=== PATIENT | male | born 1950 | race Caucasian/White ===

== ENCOUNTER 2018-03-23 09:12 | Outpatient (CLI) ==
--- NOTE | 2018-03-23 10:06 | US ---
EXAM: Right upper quadrant abdominal ultrasound. History: Elevated liver enzymes. Technique: Multiple sonographic images through the abdomen were obtained. Color duplex Doppler was used to interrogate vascular flow. Findings: The visualized pancreas demonstrates no gross abnormality. No abdominal ascites. The liver is echog enic. No focal liver lesions. There is antegrade flow within the main portal vein. Limited visuali zation of the right kidney demonstrates no evidence for hydronephrosis. No shadowing gallstones. No gallbladder wall thickening. Common bile duct measures 0.3 cm in caliber. Impression: Hepatic steatosis. Examination is otherwise unremarkable.
== END 2018-03-23 09:13 | disposition home or self-care (01) ==
LOC: RAD 09:12
PROVIDERS: ATTEND Internal Medicine
DX: R74.9 Abnormal serum enzyme level, unspecified (principal)